=== PATIENT | female | born 1955 | race Caucasian/White ===

== ENCOUNTER → 2016-03-09 | Outpatient (CLI) | payer OTHER, MEDICAID ==
[~2016-03-09] MED LIST: AMBIEN 10MG TAB10 MG PO; APAP/HYDROCODON1 TA9 PO; ASPIRIN 81MG TA81 MG PO; CARVEDILOL6.25 MG PO; CIPRO 500MG TA500 MG PO; COREG 6.25MG6.25 MG PO; DIVALPROEX SOD500 M2 PO; DOXYCYCLINE HY100 MG PO; DULERA1 AR1 IH; ETODOLAC400 MG PO; FLAGYL500 M1 PO; GABAPENTIN 400400 MG PO; LASIX 40MG. TAB40 MG PO; LASIX 80MG. TAB80 MG PO; LEVAQUIN500 MG PO; LEVOFLOXACIN 5500 M1 PO; LIPITOR10 MG PO; LISINOPRIL 5MG T5 MG NG; MEDROL 4MG. DOSE4 MG PO; NEURONTIN400 M1 PO; NICOTINE PATCH;21 MG TD; NORCO 325 MG-101 TAB PO; ONDANSETRON4 M1 PO; PERCOGESIC1 TAB PO; PHENERGAN25 M3 PO; PLAVIX 75MG TAB75 MG PO; POTASSIUM CHLO20 MEQ PO; PROTONIX 40MG T40 MG PO; SERTRALINE25 MG PO; VENTOLIN H0.09 MG/Ac IH; ZITHROMAX Z PA250 MG PO; ZITHROMAX Z-PA250 M1 PO; ZOFRAN ODT4 MG PO
[2016-03-09 13:58] LABS: AMPHETAMINES/METAMPHETAMINES NEGATIVE ng/mL (<1000)
== END ==
LOC: LAB 13:27
PROVIDERS: Emergency Medicine
DX: Z79.899 Other long term (current) drug therapy (principal)